=== PATIENT | female | born 1950 | race Caucasian/White ===

== ENCOUNTER 2019-08-24 08:02 | Emergency (ER) | payer MEDICARE, OTHER ==
--- OUTSIDE RECORDS SUMMARY | 2019-08-24 08:09 | XMS REPORT | Continuity of Care Document ---
:1950 External Reference #:[id number] Author Name Scott Bermudez M.D. Address [address] [place] [id number] Care Team Providers Name Role Phone Danielle Carrion MD - Family Medicine Care Team Information [employer] [phone] Problems Active Problems Provider Date Hypothyroidism Onset: Bone spur Onset: Note: in neck [place] thyroiditis Onset: Nuclear senile cataract Scott Bermudez M.D. Onset: 06/27/2016 Myopia Scott Bermudez M.D. Onset: 06/27/2016 Social History Type Date Description Comments Sex Unknown ETOH Use Occasionally consumes alcohol Tobacco Use Start: Unknown End: Patient is a former smoker Unknown Recreational Drug Use Denies Drug Use Smoking Status Reviewed: 08/06/19 Patient is a former smoker Allergies, Adverse Reactions, Alerts Active Allergies Reaction Severity Comments Date Penicillin 07/23/2018 Inactive Allergies NKDA 06/22/2016 Medications Active Medications SIG Qnty Indications Ordering Provider Date Levothyroxine Sodium daily Unknown 88mcg Tablets Estradiol Unknown 0.0375mg/24HR Patches Biweek Multivitamins Unknown Capsules Vitamin C ER Unknown 500mg Capsules ER Fish Oil Unknown 500mg Capsules Zyrtec Allergy as needed Unknown 10mg Capsules Warm Compresses as needed Unknown Medications Administered in Office Medication SIG Qnty Indications Ordering Provider Date Connie Gardner 01/08/2004 Injection Cindy Gardner. 05/06/2003 Injection Crizal Connie Preciado 10/20/2002 Injection Immunizations Description No Information Available Vital Signs Description No Information Available Results Description No Information Available Procedures Description No Information Available Medical Devices Description No Information Available Encounters Description No Information Available Assessments Date Code Description Provider 08/06/2019 H25.13 Age-related nuclear cataract, bilateral Scott Bermudez M.D. 08/06/2019 H52.13 Myopia, bilateral Scott Bermudez M.D. 08/06/2019 H52.4 Presbyopia Scott Bermudez M.D. Plan of Treatment Future Appointment(s):08/05/2020 2:30 pm - Scott Bermudez M.D. at Andrea Carr MD, [facility] - Scott Bermudez M.D.H25.13 Age-related nuclear cataract, bilateralComments:Smoking can increase the risk of developing or worsening any eye related disease, as well as affect your overall health. If you are a smoker, we strongly recommend that you quit.If you are not a smoker, we strongly recommend that you do not start. You have been diagnosed with cataracts. If you are happy with your vision as it is now, then we will see you at your next scheduled appointment. If you feel like your vision is getting worse before your scheduled appointment, please call Gabby at .Follow up:1 Year Follow Up DFE You can expect to have your eyes dilated at your next visit. If Dr. Bermudez orders any additional testing, it may require extra time. We recommend that you bring sunglasses, as dilation drops often make you light sensitive until they wear off. We always recommend you bring someone to drive you home if you are uncomfortable driving with your eyes dilated. If you have any questions before your next visit, feel free to call our office at .H52.13 Myopia, bilateralComments:You have Myopia, or near sightedness. I have given you a prescription for glasses.H52.4 PresbyopiaComments:You have presbyopia. This is when the lens in your eye loses the ability to change focus, and happens as we age. A pair of reading glasses will help you see up close. Functional Status Description No Information Available Mental Status Description No Information Available Referrals Description No Information Available
[2019-08-24 08:14] VITALS: BP 138/66
--- NOTE | 2019-08-24 08:42 | UC ---
Lower Extremity/Ankle HPI - HPI Summary HPI Summary: 2 days ago patient stepped of of step into garage and R ankle twisted and L foot twisted and she fell. was able to ambulate after fall with great pain in bilateral feet (not ankles). has been icing and elevating but today swelling and black and blue worse - History of Current Complaint Chief Complaint: UCLowerExtremity Stated Complaint: ANKLE INJURY BOTH Time Seen by Provider: 08/24/19 08:28 Hx Obtained From: Patient Onset/Duration: Sudden Onset Severity Initially: Severe Severity Currently: Moderate Pain Intensity: 7 Aggravating Factor(s): Standing, Ambulation Alleviating Factor(s): Rest, Elevation, Ice Able to Bear Weight: Yes - with pain - Allergies/Home Medications Allergies/Adverse Reactions: Allergies Allergy/AdvReac Type Severity Reaction Status Date / Time Penicillins Allergy Rash Verified 08/24/19 08:09 Home Medications: Home Medications ValACYclovir (*) [Valtrex 1 GM(*)] 1 gm PO DAILY 08/24/19 [History Confirmed 08/02] PMH/Surg Hx/FS Hx/Imm Hx Previously Healthy: Yes Endocrine History: Hypothyroidism - Surgical History Surgical History: Yes Surgery Procedure, Year, and Place: HYSTERECTOMY,OVARIANS REMOVED,TONSILECTOMY, BASIL CELL REMOVED. Squamous Cell Removed - Family History Known Family History: Positive: Non-Contributory - Social History Occupation: Retired Lives: With Family Alcohol Use: Daily Substance Use Type: None Smoking Status (MU): Never Smoked Tobacco Review of Systems All Other Systems Reviewed And Are Negative: Yes Constitutional: Positive: Negative Skin: Positive: Bruising - bilateral feet Respiratory: Positive: Negative Cardiovascular: Positive: Negative Musculoskeletal: Positive: Other: - swelling and bruising bilateral feet Neurological: Positive: Negative Psychological: Positive: Negative Is Patient Immunocompromised?: No Physical Exam Triage Information Reviewed: Yes Appearance: Well-Appearing, No Pain Distress, Well-Nourished Vital Signs: Initial Vital Signs Temp 98 F 08/24/19 08:11 Pulse 65 08/24/19 08:11 Resp 16 08/24/19 08:11 BP 138/66 08/24/19 08:11 Pulse Ox 97 08/24/19 08:11 Vital Signs Reviewed: Yes Respiratory Exam: Normal Cardiovascular Exam: Normal Musculoskeletal: Positive: Strength Intact, ROM Intact, Other: - ecchymosis and swelling bilateral dorsal feet -L wors than right no ankle pain or deformity Neurological Exam: Normal Psychological Exam: Normal Diagnostics - Radiology No standard instances Radiology Interpretation Completed By: Radiologist - FINDINGS: BONE DENSITY: There is diffuse osteopenia. BONES: There is a nondisplaced fracture of the base of the left second metatarsal. The Lisfranc interval appears normal. JOINTS : There is no arthropathy. ALIGNMENT: There is no dislocation. SOFT TISSUES: Unremarkable. OTHER FINDINGS: None. IMPRESSION: 1. NONDISPLACED FRACTURE OF THE BASE OF THE SECOND METATARSAL OF THE LEFT FOOT. 2. OSTEOPENIA. 3. NO ACUTE OSSEOUS INJURY OF THE RIGHT FOOT. 4. IF SYMPTOMS PERSIST, RECOMMEND REPEAT IMAGING Lower Extremity Course/Dx - Differential Dx/Diagnosis Differential Diagnosis/HQI/PQRI: Contusion, Fracture (Closed), Strain Provider Diagnosis: Fx metatarsal-closed Discharge ED - Sign-Out/Discharge Documenting (check all that apply): Patient Departure All imaging exams completed and their final reports reviewed: Yes - Discharge Plan Condition: Stable Disposition: HOME Patient Education Materials: Foot Fracture in Adults (ED), Foot Sprain (ED) Referrals: Danielle Padron MD [Primary Care Provider] - Jose Ramon Simons MD [Medical Doctor] - 1 Day (call for follow-up) Additional Instructions: elevate feet and use ice packs ibuprofen for pain if needed use hanny and orthopedic shoe until seen by orthopedics use your crutches to keep weight off of Left foot - Billing Disposition and Condition Condition: STABLE Disposition: Home
== END 2019-08-24 09:50 | disposition home or self-care (01) ==
LOC: UCEAST 08:02
DX: S92.325A Nondisplaced fracture of second metatarsal bone, left foot, initial encounter for closed fracture (principal); M25.474 Effusion, right foot; M85.872 Other specified disorders of bone density and structure, left ankle and foot; Z88.0 Allergy status to penicillin; X50.0XXA Overexertion from strenuous movement or load, initial encounter; W18.30XA Fall on same level, unspecified, initial encounter; Y92.9 Unspecified place or not applicable
CPT/HCPCS: 99213; G0463